=== PATIENT | male | born 1960 | race Caucasian/White ===

== ENCOUNTER 2019-12-01 09:54 | Emergency (ER) | payer BC ==
--- OUTSIDE RECORDS SUMMARY | 2019-12-01 10:45 | XMS REPORT | Continuity of Care Document ---
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 [facility] 011 ,[place] bilateral, corneal foreign body,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, [facility] (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, corneal foreign body,rt eye Other premature Active Problem 09/10/2019 CL beats Cardiovasc ular Essential Active Diagnosis 09/10/2019 CL hypertension, Cardio vascular benign Benign essential Active Problem 09/10/2019 CL hypertension Cardiov ascular Palpitations Active Diagnosis 09/10/2019 CL Cardiovasc ular Numbness Active Diagnosis 04/04/2018 CL Cardiovasc ular Other symptoms Active Diagnosis 09/10/2019 CL involving Cardiovasc ular cardiovascular system Other premature Active Problem 04/04/2018 CL beats Cardiovasc ular Palpitations Active Problem 04/04/2018 CL Cardiovasc ular Chest pain Active Diagnosis 04/04/2018 CL Cardiovasc ular Essential Active Problem 04/04/2018 CL hypertension, Cardio vascular benign Other symptoms Active Diagnosis 11/25/2014 CL involving Cardiovasc ular cardiovascular system Chest pain, Active Diagnosis 11/25/2014 CL unspecified Cardiova scular Hypertensive Resolved Problem 04/20/2015 [facility] disorder, systemic arterial (disorder) Hypothyroidism Resolved Problem 04/20/2015 [facility] (disorder) FEVER, Active [facility] [facility] UNSPECIFIED Medications Medication Details Route Status Patient Ordering Order Source Instructions Provider Date Clonidine HCl 1 tablet as Orally Active 0.1 MG Orally Leonor 08/25/ CL needed for twice a day 2018 Cardiovas cu systolic bp (bid) lar greater than 160 Hydrochlorothia 1 capsule in Orally Active 12.5 MG Leonor 08/18/ CL zide the morning Orally Once a 2019 Cardio vascu day lar Labetalol HCl 1 tablet Orally Active 150 Orally Leonor 08/05/ CL Every 12 2018 Cardiovascu hours. lar Labetalol HCl 1 tablet Orally Active 150 Orally Leonor 08/05/ CL Every 12 2018 Cardiovascu hours. lar Bystolic 1 tablet Orally Active 20 MG Orally Leonor /18/ CL Once a day 2016 Cardiovascu lar Bystolic 1 tablet Orally Active 20 MG Orally Leonor /18/ CL Once a day 2016 Cardiovascu lar Aspirin 1 tablet Orally Active 81 MG Orally Leonor 22/ CL Once a day 2016 Cardiovascu lar Aspirin 1 tablet Orally Active 81 MG Orally Leonor /22/ CL Once a day 2016 Cardiovascu lar Amlodipine 1 tablet Orally Active 10 MG Orally Leonor 09/18/ CL Besylate Once a day 2016 Cardiovascu lar Nitroglycerin 1 tablet Sublingual Active 0.4 MG Leonor /22/ CL Sublingual 2016 Cardiovascu once a day lar Amlodipine 1 tablet Orally Active 10 MG Orally Leonor 09/18/ CL Besylate Once a day 2016 Cardiovascu lar Nitroglycerin 1 tablet Sublingual Active 0.4 MG Leonor 03/22/ CL Sublingual 2017 Cardiovascu once a day lar Ciprofloxacin Special Active 250 MG Oral Instructions 2014 [facility] st Tablet [Cipro] : for UTI Ciprofloxacin 2 Notes: Do No Longer MG/ML not Active 2014 [facility] Injectable refrigerate Solution [Cipro] Solu-Medrol Notes: (Same No Longer as :Medrol) Active 2014 Take with food Solu-Medrol Notes: (Same Inactive as :Medrol) 2014 Take with food Solu-Medrol Notes: (Same Inactive as :Medrol) 2014 Take with food Amlodipine Notes: (Same No Longer as: Norvasc) Active 2014 pneumococcal Notes: (Same Inactive capsular as: 2014 polysaccharide Pneumovax type 1 vaccine 23) / pneumococcal Refrigerate capsular polysaccharide type 10A vaccine / pneumococcal capsular polysaccharide type 11A vaccine / pneumococcal capsular polysaccharide type 12F vaccine / pneumococcal capsular polysacchar methylPREDNISol 6 mg, PO, Active one SODium Daily, 0 2014 SUCCinate Refill(s) Amlodipine 10 mg, PO, Active Daily, 0 2014 Refill(s) Lactulose Notes: (Same No Longer as:Chronulac Active 2014 ) normal saline 1,000 mL, No Longer 0.9% IV 1,000 Rate: 125 Active 2014 [facility] ml/hr, Infuse over: 8 hr, Route: IV, Dosing Weight 93 kg, Total Volume: 1,000, Start date: 04/14/15 4:30:00, Duration: 30 day, Stop date: 05/14/15 4:29:00 Acetaminophen Notes: Do No Longer not exceed 4 Active 2014 gm/day. (Same as: Tylenol) Ondansetron Notes: (Same No Longer as: Zofran) Active 2014 MEDICATION WASTE Product Size: 4 mg Product Wasted: ___ mg Docusate Notes: (Same No Longer as: Colace) Active 2014 (Do Not Crush) ibuprofen 200 600 mg, Inactive mg oral tablet Route: PO, [facility], Dosing Weight 93.636, kg, Priority: STAT, Start date: 04/13/15 19:59:00, Stop date: 04/13/15 19:59:00 Albuterol 0.833 3 ml, Route: Inactive MG/ML / INHALATION, 2014 Ipratropium Drug Form: [place] 0.167 SOLN, Dosing MG/ML Inhalant Weight Solution 93.636, kg, [DuoNeb] ONCE, Start date: 04/13/15 19:58:00, Stop date: 04/13/15 19:58:00 Sodium Chloride 1,000 mL, Inactive 0.154 MEQ/ML 1,000 ml/hr, [facility] Injectable Infuse Over: Solution 1 hr, Route: IV, ONCE, Priority: STAT, Dosing Weight 93.636 kg, Start date: 04/13/15 19:58:00, Duration: 1 doses or times, Stop date: 04/13/15 19:58:00 Amlodipine 1 tablet Orally Active 10 MG Orally Leonor 03/29/ CL Besylate Once a day 2013 Cardiovascu lar [place] 5/325 1 tab, PO No Longer Chey Memoria l oral tablet Route: PO, [facility] 2010 [facility] Drug Form: TAB, ONCE, PRN Pain, Start date: 03/11/11 12:56:00 cefazolin 2 gm, Route: IVPB No Longer Chey Colby rial IVPB, ONCE, Active 2010 [facility] Start date: 03/11/11 8:10:00, Duration: 1 doses or times, Stop date: 03/11/11 8:10:00 LR IV 1,000 mL 1,000 mL, IV No Longer Frank Me morial Rate: [address] [place] [address] ml/hr, Infuse over: 25 hr, Route: IV, Total Volume: 1,000, Start date: 03/11/11 7:05:00, Duration: 30 day, Stop date: 04/10/11 7:04:00 Hydrochlorothia 1 capsule in Orally Active 12.5 MG Leonor CL zide the morning Orally Once a Cardio vascu day lar Clonidine HCl 1 tablet Orally Active 0.1 MG Orally Leonor CL Once a day as Cardiovasc u needed lar Amlodipine TAKE 1 NA Active 10 Leonor CL Besylate TABLET BY Cardiovascu MOUTH EVERY lar DAY Bystolic 1 tablet Orally Active 20 MG Orally Leonor CL Once a day Cardiovascu lar Clonidine HCl 1 tablet Orally Active 0.1 MG Orally Leonor CL Once a day as Cardiovasc u needed lar Methylprednisol 1 tab Oral Active 2.5 Oral qd Leonor CL one Cardiovascu lar Methylprednisol 1 tab Oral Active 2.5 Oral qd Leonor CL one Cardiovascu lar PrednisoLONE 1 tablet Orally Active 5 MG Orally Leonor CL Once a day Cardiovascu lar Quinapril HCl 1 tablet Orally Active 40 MG Orally Leonor CL Once a day Cardiovascu lar Allergies, Adverse Reactions, Alerts Substance Category Reaction Severity Reaction Status Date Comments S ource type Reported N.K.D.A. Adverse Info Not Adverse CL Reaction Available Reaction 9 Card iovascul ar NKFA Assertion Drug Active BROOKS Hernandez thedarren allergy Immunizations Immunization Date Site Status Last Comments Source Given Updated pneumococcal Left completed Toby BROOKS [place] [facility] 23-valent 5 Deltoid vaccine Results Order Name Results Value Reference Date Interpretation Comments Mary rce Range CHEM PANEL eGFR 86 04/17 Result Comment: The [facility] eGFR is calculated using the CKD-EPI formula. In most young, healthy individuals the eGFR will be >90 mL/min/1.73m2 . The eGFR declines with age. An eGFR of 60-89 may be normal in some populations, particularly the elderly, for whom the CKD-EPI formula has not been extensively validated. Use of the eGFR is not recommended in the following populations:< br/>
Candice viduals with unstable creatinine concentration s, including patients and those with serious co-morbid conditions.<b r/>
Patie nts with extremes in muscle mass or diet.

The data above are obtained from the National Kidney Disease Education Program (NKDEP) which additionally recommends that when the eGFR is used in patients with extremes of body mass index for purposes of drug dosing, the eGFR should be multiplied by the estimated BMI. CHEM PANEL Calcium Lvl 8.0 8.5 - 10.5 04/17 [facility] CHEM PANEL CO2 25 24 - 32 04/17 [facility] CHEM PANEL Sodium Lvl 136 135 - 145 04/17 [facility] CHEM PANEL Creatinine 1.0 0.5 - 1.4 04/17 [facility] CHEM PANEL Chloride Lvl 104 95 - 109 04/17 [facility] CHEM PANEL Potassium 3.7 3.5 - 5.1 04/17 [facility] CHEM PANEL BUN 11 7 - 22 04/17 [facility] CHEM PANEL Glucose Lvl 105 70 - 99 04/17 [facility] CHEM PANEL AGAP 10.7 10.0 - 04/17 20. [facility] HEMATOLOGY Platelet 330 133 - 450 04/17 [facility] HEMATOLOGY RDW 14.2 11.5 - 04/17 14.5 [facility] HEMATOLOGY Hct 43.5 42.0 - 04/17 MH 54.0 [facility] HEMATOLOGY MCV 94.3 80.0 - 04/17 MH 94.0 /2014 [facility] HEMATOLOGY MPV 7.7 7.4 - 10.4 04/17 /2014 [facility] HEMATOLOGY WBC 12.3 3.7 - 10.4 04/17 /2014 [facility] HEMATOLOGY MCHC 32.8 32.0 - 04/17 MH 36.0 /2014 [facility] HEMATOLOGY MCH 30.9 27.0 - 04/17 MH 31.0 /2014 [facility] HEMATOLOGY Hgb 14.3 14.0 - 04/17 MH 18.0 /2014 [facility] HEMATOLOGY RBC 4.61 4.70 - 04/17 MH 6. [facility] HEMATOLOGY Segs 68.0 45.0 - 04/17 MH 75.0 /2014 [facility] HEMATOLOGY Eosinophils 1.4 0.0 - 4.0 04/17 /2014 [facility] HEMATOLOGY Lymphocytes 20.2 20.0 - 04/17 MH 40.0 /2014 [facility] HEMATOLOGY Segs-Bands # 8.4 1.5 - 8.1 04/17 [facility] HEMATOLOGY Basophils 0.7 0.0 - 1.0 04/17 [facility] HEMATOLOGY Monocytes 9.7 2.0 - 12.0 04/17 [facility] HEMATOLOGY Eosinophils 0.2 0.0 - 0.5 04/17 # /2014 [facility] HEMATOLOGY Monocytes # 1.2 0.0 - 0.8 04/17 /2014 [facility] HEMATOLOGY Lymphocytes 2.5 1.0 - 5.5 04/17 # /2014 [facility] HEMATOLOGY Basophils # 0.1 0.0 - 0.2 04/17 [facility] URINE AND UA Color Ltyellow 04/16 STOOL /2014 [facility] URINE AND UA Bacteria Occasional None Seen 04/16 STOOL /HPF /HPF /2014 [facility] URINE AND UA Leuk Est Large Negative 04/16 STOOL *ABN* /2014 [facility] (04/16/15 1:02 PM) URINE AND UA WBC 106 0 - 5 04/16 STOOL /2014 [facility] URINE AND UA RBC 15 0 - 2 04/16 STOOL /2014 [facility] URINE AND UA Sq Epi Occasional Few /LPF 04/16 STOOL /LPF /2014 [facility] URINE AND UA Bili Negative Negative 04/16 STOOL *NA* /2014 [facility] (04/16/15 1:02 PM) URINE AND UA Nitrite Negative Negative 04/16 STOOL (04/16/15 1:02 PM) /2014 [facility] URINE AND UA Blood Small Negative 04/16 STOOL *ABN* [facility] (04/16/15 1:02 PM) URINE AND UA 2.0 0.1 - 1.0 04/16 STOOL Urobilinogen [facility] URINE AND UA Glucose Negative Negative 04/16 STOOL mg/dL mg/dL [facility] URINE AND UA Protein Negative Negative 04/16 STOOL mg/dL mg/dL [facility] URINE AND UA pH 7.0 5.0 - 8.0 04/16 STOOL [facility] URINE AND UA Ketones Negative Negative 04/16 STOOL mg/dL mg/dL [place] URINE AND UA Spec Grav 1.015 <=1.030 04/16 STOOL [facility] URINE AND UA Turbidity Slight Clear 04/16 STOOL *ABN* [facility] (04/16/15 1:02 PM) URINE AND UA Hyal Cast 1 0 - 2 04/16 STOOL [facility] ELECTROLYT Potassium 4.8 3.5 - 5.1 04/15 ES Lvl [facility] ELECTROLYT Sodium Lvl 136 135 - 145 04/15 ES [facility] ELECTROLYT Chloride Lvl 103 95 - 109 04/15 ES [facility] ELECTROLYT eGFR 86 04/15 Comment: The [facility] eGFR is calculated using the CKD-EPI formula. In most young, healthy individuals the eGFR will be >90 mL/min/1.73m2 . The eGFR declines with age. An eGFR of 60-89 may be normal in some populations, particularly the elderly, for whom the CKD-EPI formula has not been extensively validated. Use of the eGFR is not recommended in the following populations:< br/>
Candice viduals with unstable creatinine concentration s, including patients and those with serious co-morbid conditions.<b r/>
Patie nts with extremes in muscle mass or diet.

The data above are obtained from the National Kidney Disease Education Program (NKDEP) which additionally recommends that when the eGFR is used in patients with extremes of body mass index for purposes of drug dosing, the eGFR should be multiplied by the estimated BMI. ELECTROLYT Albumin Lvl 3.1 3.5 - 5.0 04/15 ES [facility] ELECTROLYT Globulin 3.2 2.0 - 4.0 04/15 ES [facility] ELECTROLYT Total 6.3 6.4 - 8.4 04/15 ES Protein /2014 [facility] ELECTROLYT Alk Phos 56 39 - 136 04/15 ES /2014 [facility] ELECTROLYT AST 12 0 - 37 04/15 ES /2014 [facility] ELECTROLYT A/G Ratio 1.0 0.7 - 1.6 04/15 ES /2014 [facility] ELECTROLYT ALT 33 0 - 65 04/15 ES /2014 [facility] ELECTROLYT Creatinine 1.0 0.5 - 1.4 04/15 ES Lvl /2014 [facility] ELECTROLYT BUN 10 7 - 22 04/15 ES /2014 [facility] ELECTROLYT Bili Total 1.1 0.2 - 1.3 04/15 ES /2014 [facility] ELECTROLYT Glucose Lvl 107 70 - 99 04/15 ES /2014 [facility] ELECTROLYT CO2 22 24 - 32 04/15 ES /2014 [facility] ELECTROLYT AGAP 15.8 10.0 - 04/15 ES 20.0 /2014 [facility] ELECTROLYT Calcium Lvl 8.0 8.5 - 10.5 04/15 ES /2014 [facility] ELECTROLYT B/C Ratio 10 6 - 25 04/15 ES /2014 [facility] HEMATOLOGY Segs-Bands # 17.5 1.5 - 8.1 04/15 MH /2014 [facility] HEMATOLOGY Monocytes # 0.6 0.0 - 0.8 04/15 MH /2014 [facility] HEMATOLOGY Lymphocytes 0.9 1.0 - 5.5 04/15 MH # /2015 [facility] HEMATOLOGY Segs 92.1 45.0 - 04/15 MH 75.0 /2015 [facility] HEMATOLOGY Basophils 0.1 0.0 - 1.0 04/15 /2014 [facility] HEMATOLOGY Monocytes 3.3 2.0 - 12.0 04/15 /2014 [facility] HEMATOLOGY Lymphocytes 4.5 20.0 - 04/15 MH 40.0 /2014 [facility] HEMATOLOGY MCH 30.9 27.0 - 04/15 MH 31.0 /2014 [facility] HEMATOLOGY MCV 95.2 80.0 - 04/15 94.0 /2014 [facility] HEMATOLOGY MCHC 32.5 32.0 - 04/15 MH 36.0 /2014 [facility] HEMATOLOGY RDW 14.0 11.5 - 04/15 MH 14.5 /2014 [facility] HEMATOLOGY MPV 8.2 7.4 - 10.4 04/15 [facility] HEMATOLOGY Platelet 270 133 - 450 04/15 [facility] HEMATOLOGY WBC 19.0 3.7 - 10.4 10 /2014 [facility] HEMATOLOGY RBC 4.84 4.70 - 04/15 MH 6.10 [facility] HEMATOLOGY Hgb 14.9 14.0 - 04/15 MH 18.0 /2014 [facility] HEMATOLOGY Hct 46.0 42.0 - 04/15 MH 54.0 /2014 [facility] CHEM PANEL LDH 158 98 - 192 04/14 [facility] HEMATOLOGY MCH 30.2 27.0 - 04/14 MH 31.0 /2014 [facility] HEMATOLOGY MCHC 31.5 32.0 - 04/14 MH 36.0 /2014 [facility] HEMATOLOGY RBC 4.59 4.70 - 04/14 MH 6.10 [facility] HEMATOLOGY RDW 14.3 11.5 - 04/14 MH 14.5 /2014 [facility] HEMATOLOGY MCV 96.0 80.0 - 04/14 MH 94.0 /2014 [facility] HEMATOLOGY Hgb 13.9 14.0 - 04/14 MH 18.0 /2014 [facility] HEMATOLOGY Hct 44.1 42.0 - 04/14 MH 54.0 /2014 [facility] HEMATOLOGY MPV 8.5 7.4 - 10.4 04/14 [facility] HEMATOLOGY Platelet 252 133 - 450 04/14 [facility] HEMATOLOGY WBC 23.0 3.7 - 10.4 04/14 [facility] HEMATOLOGY Eosinophils 0.1 0.0 - 4.0 04/14 [facility] HEMATOLOGY Basophils 0.4 0.0 - 1.0 04/14 [facility] HEMATOLOGY Monocytes 10.2 2.0 - 12.0 04/14 [facility] HEMATOLOGY Lymphocytes 7.1 20.0 - 04/14 MH 40.0 /2014 [facility] HEMATOLOGY Basophils # 0.1 0.0 - 0.2 04/14 [facility] HEMATOLOGY Segs-Bands # 18.9 1.5 - 8.1 04/14 [facility] HEMATOLOGY Monocytes # 2.4 0.0 - 0.8 04/14 [facility] HEMATOLOGY Lymphocytes 1.6 1.0 - 5.5 04/14 MH # /2014 [facility] HEMATOLOGY Segs 82.2 45.0 - 04/14 MH 75.0 /2015 [facility] THYROID TSH 0.159 0.360 - 04/14 PANEL 3.740 /2014 [facility] THYROID T4 Free 0.88 0.76 - 04/14 PANEL 1.46 /2014 [facility] CHEM PANEL Procalcitoni 0.05 0.00 - 04/14 n Lvl 0.10 [facility] CHEM PANEL Lactic Acid 0.8 0.5 - 2.2 04/14 Lvl /2014 [facility] VIRAL - Influ A Negative Negative 04/14 SEROLOG[facility] (04/13/15 8:27 PM) [facility] VIRAL - Influ B Negative Negative 04/14 SEROLOG[facility] (04/13/15 8:27 PM) /2014 [facility] CARDIAC proBNP 65 0 - 125 04/14 ENZYMES [facility] CARDIAC CK MB Index <0.5 0.0 - 2.5 04/14 ENZYMES [facility] CARDIAC Troponin-I <0.02 0.00 - 04/14 ENZYMES 0.40 /2014 [facility] CARDIAC CK MB <0.5 0.5 - 3.6 04/14 ENZYMES [facility] CARDIAC Total CK 111 12 - 191 04/14 ENZYMES [facility] CHEM PANEL eGFR 66 04/14 Comment: The [facility] eGFR is calculated using the CKD-EPI formula. In most young, healthy individuals the eGFR will be >90 mL/min/1.73m2 . The eGFR declines with age. An eGFR of 60-89 may be normal in some populations, particularly the elderly, for whom the CKD-EPI formula has not been extensively validated. Use of the eGFR is not recommended in the following populations:< br/>
Candice viduals with unstable creatinine concentration s, including patients and those with serious co-morbid conditions.<b r/>
Patie nts with extremes in muscle mass or diet.

The data above are obtained from the National Kidney Disease Education Program (NKDEP) which additionally recommends that when the eGFR is used in patients with extremes of body mass index for purposes of drug dosing, the eGFR should be multiplied by the estimated BMI. CHEM PANEL Bili Total 0.7 0.2 - 1.3 04/14 [facility] CHEM PANEL Total 7.0 6.4 - 8.4 04/14 Protein [facility] CHEM PANEL CO2 28 24 - 32 04/14 [facility] CHEM PANEL Calcium Lvl 8.4 8.5 - 10.5 04/14 [facility] CHEM PANEL Chloride Lvl 104 95 - 109 04/14 [facility] CHEM PANEL Globulin 3.2 2.0 - 4.0 04/14 [facility] CHEM PANEL B/C Ratio 13 6 - 25 04/14 [facility] CHEM PANEL AST 19 0 - 37 04/14 [facility] CHEM PANEL AGAP 9.0 10.0 - 04/14 MH 20.0 /2015 [facility] CHEM PANEL A/G Ratio 1.2 0.7 - 1.6 04/14 [facility] CHEM PANEL ALT 40 0 - 65 04/14 [facility] CHEM PANEL Sodium Lvl 137 135 - 145 04/14 [facility] CHEM PANEL Potassium 4.0 3.5 - 5.1 04/14 Lvl [facility] CHEM PANEL Glucose Lvl 95 70 - 99 04/14 [facility] CHEM PANEL Creatinine 1.2 0.5 - 1.4 04/14l [facility] CHEM PANEL Alk Phos 49 39 - 136 04/14 [facility] CHEM PANEL BUN 16 7 - 22 04/14 [facility] CHEM PANEL Albumin Lvl 3.8 3.5 - 5.0 04/14 [facility] HEMATOLOGY Basophils # 0.1 0.0 - 0.2 04/14 [facility] HEMATOLOGY Eosinophils 0.2 0.0 - 4.0 04/14 [facility] URINE AND UA Bacteria Occasional None Seen 04/14 STOOL /HPF /HPF /2014 [facility] URINE AND UA RBC None Seen 0 - 2 04/14 STOOL (04/13/15 8:19 PM) [facility] URINE AND UA WBC 6-10 /HPF None Seen 04/14 STOOL /HPF /2014 [facility] URINE AND UA Sq Epi Occasional Few /LPF 04/14 STOOL /LPF /2014 [facility] URINE AND UA Leuk Est Negative Negative 04/14 STOOL (04/13/15 8:19 PM) /2014 [facility] URINE AND UA Glucose Negative Negative 04/14 STOOL mg/dL mg/dL /2014 [facility] URINE AND UA Ketones Trace Negative 04/14 STOOL mg/dL mg/dL /2014 [facility] URINE AND UA Bili Negative Negative 04/14 STOOL *NA* /2014 [facility] (04/13/15 8:19 PM) URINE AND UA Blood Negative Negative 04/14 STOOL (04/13/15 8:19 PM) /2014 [facility] URINE AND UA 1.0 0.1 - 1.0 04/14 STOOL Urobilinogen /2014 [facility] URINE AND UA Nitrite Negative Negative 04/14 STOOL (04/13/15 8:19 PM) [facility] URINE AND UA Turbidity Slight Cloudy Clear 04/14 STOOL (04/13/15 8:19 PM) [facility] URINE AND UA Spec Grav 1.010 <=1.030 04/14 STOOL [facility] URINE AND UA pH 8.5 5.0 - 8.0 04/14 STOOL [facility] URINE AND UA Protein Negative Negative 04/14 STOOL mg/dL mg/dL [facility] URINE AND UA Color Yellow Yellow 04/14 STOOL *NA* /2014 [facility] (04/13/15 8:19 PM) Pathology Reports No Data Provided for This Section Diagnostic Reports Report Value Date Source Biopsy with ultrasound FNA RIGHT NECK MASS: 04/17/2015 [facility] HISTORY: Large right neck ma ss with substernal mediastinal mass, most likely thyroid origin. The patient had several prior biopsies of this in the past at other facilities. Repeat biopsy was requested prior to potential surgical removal. PROCEDURE: Using sterile melvina hnique, local anesthetic and ultrasound guidance, 5 passes into the mass at the thoracic inlet were done using a 25-gauge hypodermic needles. The specimens obtained were plac ed onto slides and spray fix ed. Washings were also placed into cytology fixative. The patient tolerated the pr ocedure well without immediate complications, and was transferred back to his hospital room in stable condition. SL:13 Neck soft tissue w CT NECK WITH CONTRAST: 04/14/[address] TECHNIQUE: Helical images fr om the base of the skull through the sternal notch were done with IV contrast. FINDINGS: The large superior mediastinal mass seen on the recent chest CT is contiguous with another large mass arising from the right lobe of the thyroid, which is also markedly enlarged. The mediastin al mass shows about the same heterogeneous characteristics as the thyroid mass with some small amorphous calcifications noted. The left lobe of the thyroid is unremarkable other than a small punctate calcification. There is no significant lymph node enlargement in the neck or supraclavicular regions. No other mass is demonstrated. The airway and vocal cords a re within normal limits. There is mild cervical spondylosis without evidence of spinal stenosis. The visible sinuses are clear. There are no significant vascular abnormalities. IMPRESSION: Large mass arising from the right lobe of the thyroid with a contiguous superior mediastinal mass, also likely thyroid in origin. SL:[address] CLINICAL HISTORY: Chest pain. 04/13/2015 [facility] Chest CT with IV contrast. COMPARISON: Chest radiograph performed earlier t he same day. Very large right paratrachea l cervical and anterior mediastinal mass is present. There is considerable mass effect on the trachea, which is displaced toward the left and narrowed to 8 mm in the transver se dimension just below the thoracic inlet. The innominate and left common carotid arteries are displaced, draped around the mass. As well, the left innominate vein is inferiorly displaced by the lesion . Heterogeneous enhancement within the mass is noted although its composite density remains approximately 100 Hounsfield units. Scattered calcifications within the mass. Note that the superior mikaela n of this mass in the neck is not completely included by this chest CT. There is no other mediastina l or hilar adenopathy. No axillary adenopathy. The lungs are clear. No pleural or pericardial effusion. No aortic aneurysm or dissection. Limited visualized upper abdomen dem onstrates no significant abn ormality. Specifically no adenopathy or splenomegaly. 5 mm low-density lesion with in the central aspect of the liver and 3 mm low- density lesion in the right lobe of the liver are too small to characterize, however possibly hepatic cysts. No thoracic bone lesion appreciated. Dorsal spine degenerative ch anges. IMPRESSION: A very large pricilla sivan right paratracheal cervical and superior mediastinal is present. Significant mass effect upon the trachea. Displacement of the great vessels and innominate vein. The upper lobular component appears likely glenis guous with the thyroid gland. The superior extent of the m ass is not completely defined within the neck by this study. Thyroid etiology is primary consideration. SL:[address] CLINICAL HISTORY: Generalized weakness. [facility] Brain CT without contrast. Left frontal white matter in farct of uncertain age. Subtle low-density changes in the left posterior merritt radiata white matter as well. There is no associated mass effect or hemorrhage. No other corti franck infarcts are appreciated . No pathologic extra-axial fluid. No skull fracture or lesion appreciated. Metallic hardware within both orbits obscures detail. IMPRESSION: Left merritt radi gaby and frontal white matter lesions of uncertain age. No hemorrhage or other acute finding. SL:12 Abdomen acute series w PROCEDURE: Abdomen 3 views 04/13/2015 [facility] chest 1 view DX REASON FOR EXAM: See Clinic Indication CLINICAL INFORMATION Abdominal pain, acute COMPARISON: None. Mediastinal prominence, melyssa elation with a chest ct with IV contrast is recommended to evaluate underlying etiology. Right paratracheal mass is suspected with tracheal compression and deviation. No infi ltrates, effusions or pneumo thorax. Normal heart and pulmonary vasculature. No free air. Nonspecific bowel gas pattern. Constipation. Bilateral femoral acetabular joint osteoarthritic change. SL: 13 Consultation Notes No Data Provided for This Section Discharge Summaries No Data Provided for This Section History and Physicals No Data Provided for This Section Vital Signs Vital Sign Value Date Comments Source Weight 204 04/28/2019 [facility] Heart Rate 75 04/28/2019 [facility] Diastolic (mm Hg) 86 04/28/2019 [facility] Systolic (mm Hg) 126 04/28/2019 [facility] Cardi[facility] scular Weight 215 10/27/2018 [facility] Heart Rate 80 10/27/2018 [facility] Diastolic (mm Hg) 80 10/27/2018 [facility] Systolic (mm Hg) 138 10/27/2018 [facility] Weight 215.4 08/25/2018 [facility] Heart Rate 80 08/25/2018 [facility] Diastolic (mm Hg) 88 08/25/2018 [facility] Systolic (mm Hg) 132 08/25/2018 [facility] Weight 209.8 04/09/2018 [facility] Heart Rate 64 04/09/2018 [facility] Diastolic (mm Hg) 80 04/09/2018 [facility] Systolic (mm Hg) 142 04/09/2018 [facility] Weight 217 10/02/2017 [facility] Heart Rate 76 10/02/2017 [facility] Diastolic (mm Hg) 86 10/02/2017 [facility] Systolic (mm Hg) 126 10/02/2017 [facility] Weight 209 06/03/2017 [facility] Heart Rate 76 06/03/2017 [facility] Diastolic (mm Hg) 80 06/03/2017 [facility] Systolic (mm Hg) 144 06/03/2017 [facility] Weight 214 04/16/2017 [facility] Heart Rate 74 04/16/2017 [facility] Diastolic (mm Hg) 80 04/16/2017 [facility] Systolic (mm Hg) 164 04/16/2017 [facility] Weight 212 01/15/2017 [facility] Heart Rate 74 01/15/2017 [facility] Diastolic (mm Hg) 88 01/15/2017 [facility] Systolic (mm Hg) 150 01/15/2017 [facility] Weight 206 10/01/2016 [facility] Heart Rate 60 10/01/2016 [facility] Diastolic (mm Hg) 78 10/01/2016 [facility] Systolic (mm Hg) 128 10/01/2016 [facility] Weight 204 09/18/2016 [facility] Heart Rate 77 09/18/2016 [facility] Diastolic (mm Hg) 80 09/18/2016 [facility] Systolic (mm Hg) 166 09/18/2016 [facility] Weight 206 07/29/2016 [facility] Heart Rate 77 07/29/2016 [facility] Diastolic (mm Hg) 82 07/29/2016 [facility] Systolic (mm Hg) 150 07/29/2016 [facility] Weight 204 01/23/2016 [facility] Heart Rate 75 01/23/2016 [facility] Diastolic (mm Hg) 80 01/23/2016 [facility] Systolic (mm Hg) 145 01/23/2016 [facility] Systolic (mm Hg) 135 04/17/2015 [facility] Diastolic (mm Hg) 82 04/17/[address] Temperature Oral (F) 97.8 F 04/17/2015 [facility] Respitory Rate 20 04/17/2015 [facility] Rate 66 04/17/2015 [facility] Respitory Rate 18 04/17/2015 [facility] Systolic (mm Hg) 147 04/17/2015 [facility] Diastolic (mm Hg) 83 04/17/[address] Temperature Oral (F) 98.2 F 04/17/2015 [facility] Heart Rate 65 04/17/2015 [facility] Temperature Oral (F) 97.7 F 04/17/2015 [facility] Respitory Rate 18 04/17/2015 [facility] Systolic (mm Hg) 117 04/17/2015 [facility] Diastolic (mm Hg) 67 04/17/[address] Heart Rate 59 04/17/2015 [facility] Weight 93 04/14/2015 [facility] Height 182.88 cm 04/14/2015 [facility] BMI Calculated 27.81 04/14/2015 [facility] Weight 93.636 04/14/2015 [facility] Weight 213 11/24/2014 [facility] Heart Rate 69 11/24/2014 [facility] Diastolic (mm Hg) 80 11/24/2014 [facility] Systolic (mm Hg) 124 11/24/2014 [facility] Diastolic (mm Hg) 83.0 03/11/2011 [facility] Systolic (mm Hg) 133.0 03/11/2011 [facility] Respitory Rate 16.0 03/11/[address] [facility] Respitory Rate 15.0 03/11/[address] [facility] Systolic (mm Hg) 135.0 03/11/2011 [facility] Diastolic (mm Hg) 82.0 03/11/2011 [facility] Respitory Rate 15.0 03/11/[address] [facility] Diastolic (mm Hg) 80.0 03/11/2011 [facility] Systolic (mm Hg) 139.0 03/11/2011 [facility] Temperature Oral (F) 97.3 F 03/11/2011 [facility] Height 180.34 cm 03/08/[address] [facility] Weight 95.909 03/08/[address] [facility] Encounters Location Location Encounter Encounter Reason Attending ADM AK Stat us Source Details Type Number For Provider Date Date Visit [facility] [id number] WINIFRED FINK 03/11 03/[address]char [address] [facility] /2010 d [facility] [place] 3 MONTH [id number] 03/29 03/29 [facility] Radha F/U [id number]- /2013 [facility] [place] [id number] scu lar [place] 3 MONTH [id number] 03/29 03/29 [facility] Mohamed F/U [id number]- /2013 Car n[facility] [place] [id number] scu lar [place] 3 MONTH [id number] 03/29 03/29 [facility] Mohamed F/U [id number]- /2013 [facility] [place] [id number] scu lar [place] 4 MONTH [id number] 07/28 07/28 [facility] Mohamed F/U [id number]- /2014 [facility] [place] [id number] scu lar [place] 4 MONTH [id number] 07/28 07/28 [facility] Mohamed F/U [id number]- /2014 [facility] [place] [id number] scu lar [place] 4 MONTH [id number] 07/28 07/28 [facility] [place] [id number]- /2014 [facility] [place] [id number] scu lar [place] REFILL [id number] 09/01 09/01 [facility] [id number]- /2014 [facility] [place] [id number] scu lar [place] REFILL [id number] 09/01 09/01 [facility] [id number]- /2014 [facility] [place] [id number] scu lar [place] REFILL [id number] 09/01 09/01 [facility] [id number]- /2014 [facility] [place] [id number] scu lar [place] echo [id number] 11/17 11/17 [facility] [id number]- /2014 [facility] [place] [id number] scu lar [place] echo [id number] 11/17 11/17 [facility] [id number]- /2014 [facility] [place] [id number] scu lar [place] echo [id number] 11/17 11/17 [facility] Mohamed [id number]- /2014 [facility] [place] [id number] scu lar [place] F/U ECHO [id number] 11/24 11/24 C L Mohamed [id number]- /2014 [facility] [place] [id number] scu lar [place] F/U ECHO [id number] 11/24 11/24 C L Mohamed [id number]- /2014 [facility] [place] [id number] scu lar [place] F/U ECHO [id number] 11/24 11/24 C L Mohamed [id number]- /2014 [facility] [place] [id number] scu lar [place] Refills [id number] 12/02 12/02 [facility] Mohamed [id number]- /2014 [facility] [place] [id number] scu lar [place] Refills [id number] 12/02 12/02 [facility] Mohamed [id number]- /2014 [facility] [place] [id number] scu lar [facility] [id number] Zackery 04/14 04/17 [facility] [place] /2014 [facility] [place] 6 MONTH [id number] 01/22 01/22 [facility] Mohamed F/U [id number]- /2015 [facility] [place] [id number] tnu [facility] 6 MONTH [id number] 01/22 01/22 [facility] Mohamed F/U [id number]- /2015 [facility] [place] [id number] tnu [facility] 6 MO [id number] 07/29 07/29 [facility] [id number]- /2016 [facility] [place] [id number] scu lar Procedures Procedure Code Date Perfomer Comments Source Appendectomy [id number] [facility] Tonsillectomy [id number] Kristan t Assessment and Plan Assessment and Plan Date Source Extracted from:Title: Clinical Document 04/17/2015 Roby Author: Zackery Ponce DO Date: 04/16/15 Progress Daily [facility] SUBJECTIVE Pt is feeling better with imoprovement i n his strength, but c/o urinary frequency and dysuria. denies fever or chills OBJECTIVE Vital Signs (last 24 hrs) Last Charted Temp Oral 97.5 DegF (APR 16 08:00) Heart Rate Peripheral 78 bpm (APR 16 08:00) Resp Rate 18 BRMIN (APR 16 08:00) SBP 127 mmHg (APR 16 08:00) DBP 72 mmHg (APR 16 08:00) Labs (Last four charted values) WBC H 19.0 (MAR 30 7) H 23.0 (APR 14) H 18.3 (MAR 15) Hgb 14.9 (MAR 17) L 13.9 (MAR 16) 15.0 (MAR 15) Hct 46.0 (MAR 17) 44.1 (MAR 16) 45.8 (MAR 15) Plt 270 (MAR 17) 252 (MAR 16) 269 (MAR 15) Na 136 (MAR 17) 137 (MAR 15) K 4.8 (MAR 17) 4.0 (MAR 15) CO2 L 22 (MAR 17) 28 (MAR 15) Cl 103 (APR 15) 104 (MAR 15) Cr 1.0 (APR 15) 1.2 (MAR 15) BUN 10 (MAR 17) 16 (MAR 15) Glucose Random H 107 (MAR 17) 95 (MAR 15) Ca L 8.0 (MAR 17) L 8.4 (MAR 1 5) Troponin <0.02 (APR 13) CK MB <0.5 (APR 13) Total CK 111 (APR 13) Input/Output Record In Out Bal 04/16 24hr Tot 0 0 0 04/15 24hr Tot 3800 0 3800 ASSESSMENT and EXAM Gen. Pt is AOX4 in no acute distress HEET: Normocephalic, nontraumatic. NECK: Supple, with palpable mass LUNGS: Clear on auscultation B/l with no wheezing or crackl es HEART: S1, S2.RRR with no murmurs ABDOMEN: Soft, NT/ND with good BS CENTRAL NERVOUS SYSTEM: Patient moving all extremities liss sly well. LOWER EXTREMITIES: No C/C/E PLAN and TREATMENT Pt with a complicated thyroid and endodr inology Hx presented with generalize weakness and noted with a large thyroid mass -Appreciated Pulm consult -Will d/c IVF -repeat UA and cx -will start on Cipro -Plan for IR neck biopsy tomorrow -Will consider CT surgery consult -C/w steroids DIAGNOSES and PROBLEMS Hypothyroidism Thyroid mass mediastinal mass Generalize fatigue HTN Moebius syndrome Scheduled Meds (3):amLODIPine, ciproflox acin (Cipro I.V. 400 mg/200 mL intravenous solution), methylPREDNISolone (Solu-MEDROL) Unscheduled Meds: None PRN Meds (4):acetaminophen, docusate, lactulose, ondansetron One Time Meds: None Continuous Infusions: None Extracted from:Title: Clinical Document Author: Amish Dawn MD Date: 04/14/15 History and Physical Attending: Zackery Ponce DO Service: Internal Medicine Code status: None Specified=FULL CODE Reason for Admission: FEBRILL ILLNESS, WEAKNESS Working DRG: None Documented Isolation: None Documented Consulting Physicians: (none on file) CC: I haven't been feeling well HPI: This is a 55 yo w/ below PMHx who p /w fatigue and generalized weakness for the past couple days. Has had subjective fevers/chills and sweats. No weight loss or weight gain. Last BM was 5 days ago a nd does feel constipated. Denies lighthe adedness/dizziness, vertigo, SOB, CP, abd pain, N/V, numbness/tingling, focal weakness, blurry vision, urinary changes, cough. No sick contacts. PMHx: Moebius syndrome HTN Hypothyroidism PSHx: appendectomy tonsillectomy eye surgery FHx: reviewed and noncontributory SHx: Denies tobacco, EtOH, illicit drugs Meds: Medication List Active Medications Ordered acetaminophen: 650 mg, 2 tab, PO, Q4H, PRN: Pain 1-3/Temp > 100.4 F. docusate: 100 mg, 1 cap, PO, BID, PRN: Constipati on. ondansetron: 4 mg, 2 mL, IVP, Q6H, PRN: Nausea an d Vomiting. Medications Inactivated in the Last 72 Hours albuterol-ipratropium: 3 ml, INHALATION, ONCE. albuterol-ipratropium: 3 mL, PYXIS, ONCE. ibuprofen: 600 mg, PO, ONCE. ibuprofen: 600 mg, 3 tab, PYXIS, ONCE. iohexol: 100 mL, PYXIS, ONCE. Sodium Chloride 0.9% IV: 1,000 mL, 1,000 ml/hr, IV, O NCE. Sodium Chloride 0.9% IV: 1,000 mL, PYXIS, ONCE. Allergies: NKFA, NKDA ROS: See HPI. All other systems reviewed by myself are negative u nless noted above. Physical Exam: Vitals Tmp(F) Pulse BP RR SpO2 FIO2 04/14 02:36 ---- 104 141/95 26 98 --- 04/14 01:36 ---- 85 117/59 16 93 --- 04/14 01:35 99.3 88 117/59 16 94 --- 04/14 00:42 ---- 88 118/68 28 94 --- 04/13 23:20 ---- 89 129/60 22 95 --- 24 Hr Tmax: 99.9F (37.72c) at 04/13 21:5 3 Vital Signs are the last 5 in the past 48 hours. General: NAD, nontoxic appearing HEENT: NCAT, PERRL, MMM, no LAD Cardiovascular: RRR, S1S2 Respiratory: CTAB Abdomen: soft, +BS, NT/ND Extremities: no b/l LE edema Skin: no rashes Neurologic: comprehension and speech intact, CN III-XII liss sly intact Musculoskeletal: symmetric strength in all extremities Rectal/: deferred Labs: 24hr Labs 04/132 Lactic Acid Lvl 0.8 Procalcitonin Lvl 0.05 04/13 2027 Influ A Negative Influ B Negative 04/13 2019 Sodium Lvl 137 Potassium Lvl 4.0 Chloride Lvl 104 CO2 28 AGAP 9.0 L Glucose Lvl 95 Creatinine Lvl 1.2 BUN 16 B/C Ratio 13 Total Protein 7.0 Albumin Lvl 3.8 Globulin 3.2 A/G Ratio 1.2 Calcium Lvl 8.4 L ALT 40 AST 19 Alk Phos 49 Bili Total 0.7 eGFR 66 Total CK 111 Troponin-I <0.02 CK MB <0.5 CK MB Index <0.5 proBNP 65 WBC 18.3 H RBC 4.87 Hgb 15.0 Hct 45.8 MCV 94.2 H MCH 30.7 MCHC 32.6 RDW 14.4 Platelet 269 MPV 7.6 Segs 86.5 H Monocytes 7.3 Lymphocytes 5.5 L Eosinophils 0.2 Basophils 0.5 Segs-Bands # 15.9 H Lymphocytes # 1.0 Monocytes # 1.3 H Basophils # 0.1 UA Color Yellow UA Turbidity Slight Cloudy UA Spec Grav 1.010 UA pH 8.5 H UA Protein Negative UA Glucose Negative UA Ketones Trace UA Bili Negative UA Blood Negative UA Urobilinogen 1.0 UA Nitrite Negative UA Leuk Est Negative UA RBC None Seen UA WBC 6-10 UA Bacteria Occasional UA Sq Epi Occasional Micro: blood and urine cxs sent Imaging: CT chest: A very large bilobed right par atracheal cervical and superior mediastinal is present. Significant mass effect upon the trachea. Displacement of the great vessels and innominate vein. The upper lobular component appears likely contiguous with t he thyroid gland. The superior extent of the mass is not c ompletely defined within the neck by this study. Thyroid etiology is primary consideration. CT head: Left merritt radiata and frontal white matter lesions of uncertain age. No hemorrhage or other acute finding. KUB: Mediastinal prominence, correlation with a chest ct with IV contrast is recommended to evaluate underlying etiology. Right paratracheal mass is suspected with tracheal compression and deviation. No infiltrates, effusions or pneumothorax. Normal heart and pulmonary vasculature. No free air. Nonspecific bowel gas pattern. Constipation. Bilateral femoral acetabular joint osteoarthritic change. EKG: NSR, no major ST abnormalities Assessment and Plan: 55 yo p/w fatigue a nd generalized weakness, found to have large anterior mediastinal mass. Given the location, there is concern for thymoma and lymphoma. Leukocytosis w/ elevated se gs but no source of infection identified. His symptoms are n on-specific. # generalized weakness and fatigue: will likely need biopsy of mass, check LDH and TSH/free T4, monitor airway # constipation: iv fluids and lactulose # leukocytosis: recheck in AM, no record ed fevers or other evidence of infxn so didn't start abx, blood and urine cxs sent # HTN/hypothyroidism: c/w home regimen Prophylaxis: ambulation Diet: heart healthy Amish Umanzor Plan of Care No Data Provided for This Section Social History Social History Date Source Social History ElementQualifiersDate Reported 07/29/2016 [facility] Diet: no. Jul 29, 2016 Caffeine: yes. Do you drink caffeine? Yes Coffee in the morning 2 cups. Iced tea every day. Red bull about 3 times a week. Jul 29, 2016 Exercise: yes. Do you exercise? Yes Gym once a week. Jul 29, 2016 Smoking: . Are you a: Never smoker, Do you use chewing tobacco? No Jul 29, 2016 Alcohol: socially. Do you drink alcohol? Yes Red Wine. Socially. Jul 29, 2016 Social History TypeResponse 04/14/2015 [facility] Alcohol Current, Type Wine. Frequency: 1-2 times per month. Smoking Status Never smoker; Exposure to Tobacco Smoke None; Cigarette Smoking Last 365 Days No; Reg Smoking Cessation Counseling No Family History Value Date Source QualifierDescriptionCommentDate Reported 07/30/2016 [facility] Maternal Grand Mother Comment not available Jul 29, 2016 Paternal Grand Mother Comment not available Jul 29, 2016 Siblings Comment not available Jul 29, 2016 Maternal Grand Father Comment not available Jul 29, 2016 Children Comment not available Jul 29, 2016 Father alive Comment not available Jul 29, 2016 Paternal Grand Father Comment not available Jul 29, 2016 Mother alive Comment not available Jul 29, 2016 Other: Comment not available Jul 29, 2016 Advance Directives No Data Provided for This Section Functional Status No Data Provided for This Section
--- OUTSIDE RECORDS SUMMARY | 2019-12-01 10:46 | XMS REPORT ---
:1960 Author Organization eClinicalWorks Care Team Providers Name Role Phone Radha Galvez Provider Role Unavailable Allergies No Known Allergies Problems Problem Type Condition Code Onset Dates Condition Statu s Assessment Essential hypertension, benign I10 Active Assessment Other symptoms involving R09.89 Act jose eduardo cardiovascular system Problem Other premature beats I49.49 Active Problem Essential hypertension, benign I10 Active Problem Benign essential hypertension I10 Active Assessment Other premature beats I49.49 Active Assessment Palpitations R00.2 Active Problem Palpitations R00.2 Active Medications Medication Code Code Instructions Start End Status Dosage System Date Date Clonidine HCl [facility] 52747283302 0.1 MG Orally Aug 25, Active 1 tablet as twice a day 2018 needed for (bid) systolic bp greater than 160 Quinapril HCl [facility] 36687851830 40 MG Orally Active 1 tablet Once a day Aspirin [facility] 12534966405 81 MG Orally August Active 1 table t Once a day 2016 Labetalol HCl [facility] [address]-29 150 Orally Aug 05, Active 1 tablet Every 12 hours. 2018 Results No Known Results Summary Purpose eClinicalWorks Submission
--- OUTSIDE RECORDS SUMMARY | 2019-12-01 10:46 | XMS REPORT ---
:1960 Author Organization e[employer]Works Care Team Providers Name Role Phone Radha Galvez Provider Role Unavailable Allergies, Adverse Reactions, Alerts Substance Reaction Event Type N.K.D.A. Info Not Available Non Drug Allergy Problems Problem Type Condition Code Onset Dates [...] Start End Status Dosage System Date Date Aspirin [facility] 09611604001 81 MG Orally August Active 1 table t Once a day 2016 Clonidine HCl [facility] 02615302144 0.1 MG Orally Aug 25, Active 1 tablet as twice a day 2018 needed for (bid) systolic bp greater than 160 Labetalol HCl [facility] [address]-78 150 Orally Aug 05, Active 1 tablet Every 12 hours. 2018 Quinapril HCl [facility] 83369577736 40 MG Orally Active 1 tablet Once a day Vital Signs Date/Time: Apr 28, 2019 BMI 27.66 Index Weight 204 lbs Height 6ft in Cardiac Monitoring Heart Rate 75 /min Blood Pressure Diastolic 86 mm Hg Blood Pressure Systolic 126 mm Hg Results No Known Results Summary Purpose eClinicalWorks Submission
[2019-12-01 12:18] LABS: Urine Blood TRACE (NEG); Urine Glucose NEGATIVE (NEG); Urine Protein 2+ (NEG); Urine Specific Gravity >1.030 (1.005-1.030); Urine pH 5.5 (5.0-7.0)
--- NOTE | 2019-12-01 13:24 | RAD REPORT ---
EXAM DESCRIPTION: US - Scrotum Testicles - 12/01/2019 12:42 pm CLINICAL HISTORY: right scrotal swelling COMPARISON: No comparisons FINDINGS: Right testicle demonstrates an 11 millimeter predominantly hyperechoic oval-shaped mass. O n Doppler evaluation blood flow was present within the mass that is diminished compared to the surrou nding testicular tissue. Overall blood flow into the right testicle is increased. Adjacent to the right testicle there is a large 5.4 x 2.5 x 2.3 centimeter predominantly hypoechoic m acrolobulated mass. This is centrally hypoechoic with echogenic septations. Rim is echogenic. There i s heterogeneous mixed echogenic and cystic epididymal tissues adjacent to this mass. The left testicle contains a 16 millimeter oval mass that is predominantly hyperechoic. Positioning w ithin the testicle is similar to the finding on the right. Overall blood flow of the left testicle is diminished relative to the right but not absent. Adjacent to the left testicle is a 5 x 3 by 3 centi meter complex cystic mass. No thickened septation or mural nodule seen. There is echogenic debris wit hin the cystic mass. Left supra testicular dilated veins are seen. IMPRESSION: Bilateral predominately echogenic masses in each testicle relatively similar in size, po sition and imaging characteristics. Malignant masses tend to be hypoechoic and the presence of bilate ral relatively symmetric masses would be very uncommon as a malignant etiology. Findings may represent an atypical presentation of rete testis. Abscess or infectious process not lik nghia. Patient likely has large bilateral complex spermatoceles. Left varicocele is also likely present. The greater complex [place] of the right mass could indicate the possibility of a more aggressive extratest icular mass or less likely abscess.
--- NOTE | 2019-12-01 13:54 | ER ---
Nurse's Notes [facility] Name: Radhames Campbell Age: 59 yrs Sex: Male : 1960 Arrival Date: 12/01/2019 Time: 09:55 Bed 14 Private MD: Yash Grant A Diagnosis: Epididymitis Presentation: 11/30 10:20 Chief complaint: Patient states: Right testicular swelling x 1 day. Coronavirus screen: sv Proceed with normal triage. Patient denies a cough. Patient denies shortness of breath or difficulty breathing. Patient denies measured and/or subjective temperature greater than 100.4F prior to today's visit. Patient denies travel on a cruise ship or to a country the [facility] currently lists as an affected area. Patient denies contact with known and/or suspected case of COVID-19. Ebola Screen: No symptoms or risks identified at this time. Initial Sepsis Screen: Does the patient meet any 2 criteria? HR > 90 bpm. No. Patient's initial sepsis screen is negative. Does the patient have a suspected source of infection? No. Patient's initial sepsis screen is negative. Risk Assessment: Do you want to hurt yourself or someone else? Patient reports no desire to harm self or others. Onset of symptoms was November 30, 2019. 10:20 Method Of Arrival: Ambulatory sv 10:20 Acuity: JAN 3 sv Triage Assessment: 10:22 General: Appears in no apparent distress. uncomfortable, Behavior is calm, cooperative, sv appropriate for age. Pain: Complains of pain in pelvis. Historical: - Allergies: 10:21 No Known Allergies; sv - Immunization history:: Adult Immunizations unknown. - Social history:: Smoking status: Patient denies any tobacco usage or history of. Screenin:10 Abuse screen: Denies threats or abuse. Denies injuries from another. Nutritional bp screening: No deficits noted. Tuberculosis screening: No symptoms or risk factors identified. Fall Risk None identified. Assessment: 11:10 General: Behavior is cooperative, appropriate for age, anxious. Pain: Complains of pain bp in groin. Neuro: No deficits noted. Cardiovascular: No deficits noted. Respiratory: No deficits noted. GI: No signs and/or symptoms were reported involving the gastrointestinal system. : Reports R TESTICULAR PAIN. EENT: No deficits noted. Derm: No deficits noted. Musculoskeletal: No deficits noted. 11:56 Reassessment: PT TO U/S. bp 12:23 Reassessment: PT RETURNED FROM U/S. bp 14:14 Reassessment: PT D/C HOME AMBULATORY, DX WITH EPIDIDYMITIS. bp Vital Signs: 10:20 BP 152 / 88; Pulse 85; Resp 16; Temp 98.7; Pulse Ox 96% ; Weight 92.08 kg; Height 6 ft. sv 0 in. (182.88 cm); Pain 6/10; 12:24 BP 141 / 75; Pulse 73; Resp 17; Pulse Ox 100% ; bp 14:14 BP 137 / 89; Pulse 85; Resp 17; Temp 98.5; Pulse Ox 100% ; bp 10:20 Body Mass Index 27.53 (92.08 kg, 182.88 cm) sv ED Course: 09:55 Patient arrived in ED. as 09:56 Yash Grant MD is Private Physician. as 10:13 [facility] 10:14 Yonas Galaviz MD is Attending Physician. jmm 10:21 Triage completed. sv 10:21 Arm band placed on. sv 11:10 Patient has correct armband on for positive identification. Bed in low position. Call bp light in reach. Side rails up X2. 11:11 Rodolfo Chang, ELIUD is Primary Nurse. bp 12:42 US Scrotum Testicles In Process Unspecified. EDMS 13:53 Yash Grant MD is Referral Physician. jmm 14:14 No provider procedures requiring assistance completed. Patient did not have IV access bp during this emergency room visit. Administered Medications: No medications were administered Outcome: 13:53 Discharge ordered by . jmm 14:14 Discharged to home ambulatory. bp 14:14 Condition: stable 14:14 Discharge instructions given to patient, Instructed on discharge instructions, follow up and referral plans. medication usage, Demonstrated understanding of instructions, follow-up care, medications, Prescriptions given X 2. 14:16 Patient left the ED. bp Signatures: Dispatcher [employer] EDMS Chandrika Feliz RN RN Mike Vega PA PA jmm Martinez, Amelia as Rodolfo Chang, RN RN bp Corrections: (The following items were deleted from the chart) 10:21 10:20 BP 152 / 88; Pulse 96bpm; Resp 16bpm; Pulse Ox 96%; Temp 98.7F; 92.08 kg; Height sv 6 ft. 0 in.; BMI: 27.5; Pain 6/10; sv
--- NOTE | 2019-12-01 13:55 | EDPHYS ---
Physician Documentation [facility] Name: Radhames Campbell Age: 59 yrs Sex: Male : 1960 Arrival Date: 12/01/2019 Time: 09:55 Bed 14 Private MD: Yash Grant, A ED Physician Yonas Galaviz HPI: 11/30 11:22 This 59 yrs old Male presents to ER via Ambulatory with complaints of jmm Testicular Swelling. 11:22 The patient presents with swelling, that is moderate, of the right testicle. Onset: The jmm symptoms/episode began/occurred gradually, 1 day(s) ago. Modifying factors: The symptoms are alleviated by nothing, the symptoms are aggravated by nothing. Associated signs and symptoms: Pertinent positives: dysuria, Pertinent negatives: fever. This is a 59 year old male that presents to the ED with complaints of scrotal pain and swelling. Patient states having a similar episode when diagnosed with epididymitis. . Historical: - Allergies: 10:21 No Known Allergies; sv - Immunization history:: Adult Immunizations unknown. - Social history:: Smoking status: Patient denies any tobacco usage or history of. ROS: 11:22 Constitutional: Negative for fever, chills, and weight loss, Cardiovascular: Negative jmm for chest pain, palpitations, and edema, Respiratory: Negative for shortness of breath, cough, wheezing, and pleuritic chest pain. 11:22 : Positive for scrotal swelling. 11:22 All other systems are negative. Exam: 11:22 Constitutional: This is a well developed, well nourished patient who is awake, alert, jmm and in no acute distress. Head/Face: atraumatic. Eyes: EOMI, no conjunctival erythema appreciated ENT: Moist Mucus Membranes Neck: Trachea midline, Supple Chest/axilla: Normal chest wall appearance and motion. Cardiovascular: Regular rate and rhythm. No edema appreciated Respiratory: Normal respirations, no respiratory distress appreciated Abdomen/GI: Non distended, soft Back: Normal ROM Skin: General appearance color normal MS/ Extremity: Moves all extremities, no obvious deformities appreciated, no edema noted to the lower extremities Neuro: Awake and alert, normal gait Psych: Behavior is normal, Mood is normal, Patient is cooperative and pleasant 11:22 : Male external genitalia: swelling, scrotal, that is moderate. 11:22 Musculoskeletal/extremity: ROM: intact in all extremities. 11:22 Skin: Appearance: Color: normal in color. 11:22 Neuro: Orientation: is normal, Mentation: is normal, Memory: is normal. 11:22 Psych: Behavior/mood is pleasant, cooperative. Vital Signs: 10:20 BP 152 / 88; Pulse 85; Resp 16; Temp 98.7; Pulse Ox 96% ; Weight 92.08 kg; Height 6 ft. sv 0 in. (182.88 cm); Pain 6/10; 12:24 BP 141 / 75; Pulse 73; Resp 17; Pulse Ox 100% ; bp 14:14 BP 137 / 89; Pulse 85; Resp 17; Temp 98.5; Pulse Ox 100% ; bp 10:20 Body Mass Index 27.53 (92.08 kg, 182.88 cm) sv MDM: 11:22 Patient medically screened. sam 13:52 Data reviewed: vital signs, nurses notes. Counseling: I had a detailed discussion with benoit the patient and/or guardian regarding: the historical points, exam findings, and any diagnostic results supporting the discharge/admit diagnosis, lab results, radiology results, the need for outpatient follow up, to return to the emergency department if symptoms worsen or persist or if there are any questions or concerns that arise at home. ED course: US reveals increased flow. Most likely epididymitis. Advised to follow up with urology due to masses and is otherwise given strict return precautions. patient understood and agrees with the plan of care. . 11/30 11:24 Order name: Urine Culture [facility] 11/30 12:06 Order name: Urine Dipstick--Ancillary (enter results); Complete Time: 12:24 [facility] 11/30 11:24 Order name: Urine Dipstick-Ancillary (obtain specimen); Complete Time: 11:51 [facility] 11/30 11:24 Order name: US Scrotum Testicles; Complete Time: 13:32 [facility] Administered Medications: No medications were administered Disposition: 15:29 Co-signature as Attending Physician, Yonas Galaviz MD I agree with the assessment and kdr plan of care. Disposition: 12/01/19 13:53 Discharged to Home. Impression: Epididymitis. - Condition is Stable. - Discharge Instructions: Epididymitis. - Prescriptions for Cipro 500 mg Oral Tablet - take 1 tablet by ORAL route every 12 hours for 10 days; 20 tablet. Ultracet 37.5- 325 mg Oral Tablet - take 1 tablet by ORAL route every 6 hours - for up to 5 days; do not exceed 8 tablets per day.; 12 tablet. - Medication Reconciliation Form, Thank You Letter, Antibiotic Education, Prescription Opioid Use form. - Follow up: Yash Grant MD; When: 2 - 3 days; Reason: Recheck today's complaints, Continuance of care, Re-evaluation by your physician. Signatures: Dispatcher [employer] EDChandrika Dunlap, RN RN Yonas Palomino MD MD kdr Mickail, Joel, PA PA jmm Peltier, Brian, RN RN bp Corrections: (The following items were deleted from the chart) 14:16 13:53 12/01/2019 13:53 Discharged to Home. Impression: Epididymitis. Condition is bp Stable. Forms are Medication Reconciliation Form, Thank You Letter, Antibiotic Education, Prescription Opioid Use. Follow up: Yash Grant; When: 2 - 3 days; Reason: Recheck today's complaints, Continuance of care, Re-evaluation by your physician. benoit
[2019-12-01 14:24] VITALS: O2SAT 100
[2019-12-01 14:26] VITALS: BP 137/89; TEMP 98.5
== END 2019-12-01 14:16 | disposition home or self-care (01) ==
LOC: ER 09:54
DX: N45.1 Epididymitis (principal)
CPT/HCPCS: 76870; 81003; 87086; 87088; 99283

== ENCOUNTER → 2023-06-29 | Emergency (ER) | payer BC ==
[~2023-06-29] MED LIST: CEFTRIAXONE 1000 MG/VIAL ONE; MORPHINE 4 MG/ML SYR ONE; NA CHLORIDE 0.9% 1,000 ML ONE; ONDANSETRON 4 MG/2 ML VIAL ONE
[2023-06-29 12:45] LABS: Absolute Lymphocytes (CBC) 2.4 K/uL (0.7-4.9); Hematocrit 49.2 % (39.6-49.0); Lymphocytes % 29.4 % (15.3-44.8); MCV 94.6 fL (80-100); MPV 7.1 fL (7.6-11.3); Platelets 263 thou/uL (152-406)
[2023-06-29 12:55] LABS: Specific Gravity > 1.030 (1.005-1.030); Transitional Epithelial <5 /HPF (None Seen); Urine Bacteria <20 /HPF (<20); Urine Bilirubin NEGATIVE (Negative); Urine Blood Negative (Negative); Urine Clarity Extremely Turbid (Clear); Urine Color Yellow (Yellow); Urine Glucose NEGATIVE (Negative); Urine Mucus 1+ /HPF (None Seen); Urine Protein 1+ (Negative); Urine Urobilinogen 1+ (Normal); Urine pH 5.5 (5.0-7.0)
[2023-06-29 13:03] LABS: Albumin 3.4 g/dL (3.4-5.0); Bilirubin Total 0.7 mg/dL (0.2-1.0)
--- NOTE | 2023-06-29 13:03 | RAD REPORT ---
EXAM DESCRIPTION: CT - Stone Protocol - 06/29/2023 12:52 pm CLINICAL HISTORY: Flank pain. FLANK PAIN COMPARISON: <Comparisons> TECHNIQUE: Axial images were obtained without oral or IV contrast. Lack of contrast limits solid org an and vascular assessment. The [id number] spans the entirety of the system partially obscuring uppermost abdomen and lung bases. Coronal reformatted images were obtained and reviewed. All CT scans are performed using dose optimization technique as appropriate and may include automated exposure control or mA/KV adjustment according to patient size. FINDINGS: The lower lung shook are clear. Imaged portions of the liver and spleen show no suspicious findings on non-contrast imaging. The panc reas and adrenal glands are normal. No pathologic lymphadenopathy in the abdomen or pelvis. No urinary tract stones or obstructive uropathy. 26 mm exophytic cyst right kidney No bowel obstruction, free air, free fluid or abscess. Absent appendix.Moderate fat containing left i nguinal hernia. Prominent stool is present throughout the colon. Mild lumbar degenerative changes. IMPRESSION: No urinary tract stones or obstructive uropathy. Moderate fat containing left inguinal hernia. Moderate stool present throughout the colon.
--- NOTE | 2023-06-29 14:20 | EDPHYS ---
Physician Documentation [facility] Name: Radhames Campbell Age: 63 yrs Sex: Male : 1960 Arrival Date: 06/29/2023 Time: 11:55 Bed 20 Private MD: ED Physician Freddy Jones HPI: 06/29 12:23 This 63 yrs old Male presents to ER via Ambulatory with complaints of Low Back Pain. jh7 12:23 The patient presents with pain that is acute, with no known mechanism of injury. The jh7 symptoms are located in the left low back. 63-year-old male complains of left flank pain with no injury for the past 4 days. He denies any injury. He reports a history of hypertension and enlarged prostate. Notes mild urinary retention without dysuria. Denies any fever. Describes the pain as a spasm.. Historical: - Allergies: 12:23 No Known Allergies; hb - PMHx: 12:23 Hypertensive disorder; hb - PSHx: 12:23 Tonsillectomy; Appendectomy; Thyroidectomy; hb - Immunization history:: Adult Immunizations unknown. - Social history:: Smoking status: Patient denies any tobacco usage or history of. ROS: 12:23 Constitutional: Negative for fever, chills, and weight loss, Eyes: Negative for injury, jh7 pain, redness, and discharge, Neck: Negative for injury, pain, and swelling, Cardiovascular: Negative for chest pain, palpitations, and edema, Respiratory: Negative for shortness of breath, cough, wheezing, and pleuritic chest pain, Abdomen/GI: Negative for abdominal pain, nausea, vomiting, diarrhea, and constipation, MS/Extremity: Negative for injury and deformity, Skin: Negative for injury, rash, and discoloration, Neuro: Negative for headache, weakness, numbness, tingling, and seizure, 12:23 Back: Positive for flank pain, on the left, 12:23 : Positive for flank pain, 12:23 All other systems are negative, Exam: 12:23 Constitutional: This is a well developed, well nourished patient who is awake, alert, jh7 and in no acute distress. Head/Face: Normocephalic, atraumatic. Eyes: Pupils equal round and reactive to light, extra-ocular motions intact. Lids and lashes normal. Conjunctiva and sclera are non-icteric and not injected. Cornea within normal limits. Periorbital areas with no swelling, redness, or edema. Neck: Trachea midline, no thyromegaly or masses palpated, and no cervical lymphadenopathy. Supple, full range of motion without nuchal rigidity, or vertebral point tenderness. No Meningismus. Cardiovascular: Regular rate and rhythm with a normal S1 and S2. No gallops, murmurs, or rubs. Normal PMI, no JVD. No pulse deficits. Respiratory: Lungs have equal breath sounds bilaterally, clear to auscultation and percussion. No rales, rhonchi or wheezes noted. No increased work of breathing, no retractions or nasal flaring. Abdomen/GI: Soft, non-tender, with normal bowel sounds. No distension or tympany. No guarding or rebound. No evidence of tenderness throughout. Skin: Warm, dry with normal turgor. Normal color with no rashes, no lesions, and no evidence of cellulitis. MS/ Extremity: Pulses equal, no cyanosis. Neurovascular intact. Full, normal range of motion. Neuro: Awake and alert, GCS 15, oriented to person, place, time, and situation. Motor strength 5/5 in all extremities. Sensory grossly intact. Normal gait. 12:23 : CVA tenderness, on the left, urine is cloudy, Vital Signs: 12:20 BP 123 / 81; Pulse 18; Resp 16; Temp 97.2; Pulse Ox 100% ; Weight 91.17 kg; Height 6 hb ft. 0 in. ; Pain 8/10; 12:38 BP 134 / 79; Pulse 75; Resp 16 S; Pulse Ox 99% on R/A; Pain 4/10; kc6 13:38 BP 124 / 80; Pulse 67; Resp 19 S; Pulse Ox 99% on R/A; kc6 12:20 Body Mass Index 27.26 (91.17 kg, 182.88 cm) hb 12:20 Pain Scale: Adult hb 12:38 Pain Scale: Adult kc6 MDM: 12:01 Patient medically screened. [facility] 14:00 Differential diagnosis: arthritis, strain, sciatica, UTI, Renal stone, pyelonephritis, jh7 dehydration. Data reviewed: vital signs, nurses notes, lab test result(s), radiologic studies, CT scan. I considered the following discharge prescriptions or medication management in the emergency department Medications were administered in the Emergency Department. See MAR. Historians other than the Patient: Spouse/Significant Other: . Care significantly affected by the following chronic conditions: Hypertension. Counseling: I had a detailed discussion with the patient and/or guardian regarding the historical points, exam findings, and any diagnostic results supporting the discharge/admit diagnosis, to return to the emergency department if symptoms worsen or persist or if there are any questions or concerns that arise at home. Response to treatment: the patient's symptoms have markedly improved after treatment. ED course: Reviewed all labs and imaging with the patient. Suspected possible kidney stone that the patient had passed upon arrival versus UTI/dehydration. Will treat for infection and have the patient follow-up with his PCP. If he develops any new concerning symptoms, he may return to the ER for further eval. The patient and his understood the plan of care.. 06/29 12:24 Order name: CBC with Diff; Complete Time: 13:04 [facility] 06/29 12:24 Order name: CMP; Complete Time: 13:04 [facility] 06/29 12:24 Order name: Lipase; Complete Time: 13:04 [facility] 06/29 12:24 Order name: Urinalysis w/ reflexes; Complete Time: 13:04 [facility] 06/29 12:59 Order name: Urine Culture [facility] 06/29 12:24 Order name: CT Stone Protocol; Complete Time: 13:04 [facility] 06/29 12:24 Order name: IV Saline Lock; Complete Time: 12:34 [facility] 06/29 12:24 Order name: Labs collected and sent; Complete Time: 12:34 [facility] Administered Medications: 12:38 Drug: NS 0.9% IV 1000 ml IV at 1 bolus Per protocol; 1000 mL bolus Route: IV; Rate: 1 kc6 bolus; Site: right antecubital; 14:12 Follow up: Response: No adverse reaction; IV Status: Completed infusion; IV Intake: kc6 1000ml 12:38 Drug: Ondansetron IVP 4 mg IVP once; over 2 minutes Route: IVP; Site: right antecubital;kc6 13:43 Follow up: Response: No adverse reaction kc6 12:38 Drug: morphine IVP or IV 4 mg IVP once over 4 mins Route: IVP; Infused Over: 4 mins; kc6 Site: right antecubital; 13:42 Follow up: Response: No adverse reaction; Pain is decreased; RASS: Alert and Calm (0) 6 13:12 Drug: Rocephin IV 1 grams IV at 1 calculated rate once; Given slow IV push per pharmacy kc6 instructions Route: IV; Rate: 1 calculated rate; Site: right antecubital; 14:13 Follow up: Response: No adverse reaction; IV Status: Completed infusion; IV Intake: [id number] Disposition: 06/30 08:53 Co-signature as Attending Physician, Freddy Jones MD I reviewed the patient's care rn provided by the Advanced Practice Provider and agree with the diagnosis and treatment plan. Disposition Summary: 06/29/23 14:19 Discharge Ordered Notes: Location: Home [facility] Problem: new [facility] Symptoms: have improved [facility] Condition: Stable [facility] Diagnosis - Flank Pain [facility] - Dehydration [facility] Followup: [facility] - With: Private Physician - When: 2 - 3 days - Reason: Recheck today's complaints Discharge Instructions: - Discharge Summary Sheet [facility] - Dehydration, Adult [facility] - Flank Pain, Adult [facility] Forms: - Medication Reconciliation Form [facility] - Thank You Letter [facility] - Antibiotic Education [facility] - Prescription Opioid Use [facility] - Patient Portal Instructions [facility] - Leadership Thank You Letter [facility] Prescriptions: - Cipro 500 mg Oral Tablet - take 1 tablet ORAL route every 12 hours for 10 days; 20 tablet; Refills: 0, [facility] Product Selection Permitted - Tramadol 50 mg Oral tablet - take 1 tablet ORAL route every 8 hours As needed as needed; 20 tablet; Refills: [facility] 0, Product Selection Permitted Signatures: Dispatcher [employer] Freddy Felix MD MD rn Baxter, Heather RN ELIUD Imelda Mcelroy FNP [employer] [facility] Sophia Martinez RN RN kc6
--- NOTE | 2023-06-29 14:20 | ER ---
Nurse's Notes [facility] Name: Radhames Campbell Age: 63 yrs Sex: Male : 1960 Arrival Date: 06/29/2023 Time: 11:55 Bed 20 Private MD: Diagnosis: Flank Pain;Dehydration Presentation: 06/29 12:20 Chief complaint: Patient states: Pt c/o left flank pain x 3 days. Pt denies any urinary hb sxs. Coronavirus screen: Vaccine status: Patient reports being unvaccinated. Ebola Screen: Patient negative for fever greater than or equal to 101.5 degrees Fahrenheit, and additional compatible Ebola Virus Disease symptoms Patient denies exposure to infectious person. Patient denies travel to an Ebola-affected area in the 21 days before illness onset. No symptoms or risks identified at this time. Initial Sepsis Screen: Does the patient meet any 2 criteria? No. Patient's initial sepsis screen is negative. Does the patient have a suspected source of infection? No. Patient's initial sepsis screen is negative. Risk Assessment: Do you want to hurt yourself or someone else? Patient reports no desire to harm self or others. Onset of symptoms was June 27, 2023. 12:20 Method Of Arrival: Ambulatory hb 12:20 Acuity: JAN 3 hb Historical: - Allergies: 12:23 No Known Allergies; hb - PMHx: 12:23 Hypertensive disorder; hb - PSHx: 12:23 Tonsillectomy; Appendectomy; Thyroidectomy; hb - Immunization history:: Adult Immunizations unknown. - Social history:: Smoking status: Patient denies any tobacco usage or history of. Screenin:39 [facility] ED Fall Risk Assessment (Adult) History of falling in the last 3 months, kc6 including since admission No falls in past 3 months (0 pts) Confusion or Disorientation No (0 pts) Intoxicated or Sedated No (0 pts) Impaired Gait No (0 pts) Mobility Assist Device Used No (0 pt) Altered Elimination No (0 pt) Score/Fall Risk Level 0 - 2 = Low Risk. Abuse screen: Denies threats or abuse. Denies injuries from another. Nutritional screening: No deficits noted. Tuberculosis screening: No symptoms or risk factors identified. Assessment: 12:39 General: Appears in no apparent distress. comfortable, well groomed, well developed, kc6 Behavior is calm, cooperative, appropriate for age. Pain: Complains of pain in left low back and right low back Pain currently is 4 out of 10 on a pain scale. at worst was 9 out of 10 on a pain scale. Neuro: Level of Consciousness is awake, alert, obeys commands, Oriented to person, place, time, situation, Appropriate for age. Cardiovascular: Capillary refill < 3 seconds. Respiratory: Airway is patent Trachea midline Respiratory effort is even, unlabored, Respiratory pattern is regular, symmetrical. GI: No signs and/or symptoms were reported involving the gastrointestinal system. : No signs and/or symptoms were reported regarding the genitourinary system. Urine is blood tinged, Denies burning with urination, urinary frequency. EENT: No signs and/or symptoms were reported regarding the EENT system. Derm: No signs and/or symptoms reported regarding the dermatologic system. Skin is intact, is healthy with good turgor, Skin is pink, warm \T\ dry. Musculoskeletal: No signs and/or symptoms reported regarding the musculoskeletal system. Circulation, motion, and sensation intact. Capillary refill < 3 seconds, Range of motion: intact in all extremities. 13:38 Reassessment: Patient appears in no apparent distress at this time. No changes from kc6 previously documented assessment. Patient and/or family updated on plan of care and expected duration. Pain level reassessed. Patient is alert, oriented x 3, equal unlabored respirations, skin warm/dry/pink. Patient denies pain at this time. Patient states feeling better. Patient states symptoms have improved. Vital Signs: 12:20 BP 123 / 81; Pulse 18; Resp 16; Temp 97.2; Pulse Ox 100% ; Weight 91.17 kg; Height 6 hb ft. 0 in. ; Pain 8/10; 12:38 BP 134 / 79; Pulse 75; Resp 16 S; Pulse Ox 99% on R/A; Pain 4/10; kc6 13:38 BP 124 / 80; Pulse 67; Resp 19 S; Pulse Ox 99% on R/A; kc6 12:20 Body Mass Index 27.26 (91.17 kg, 182.88 cm) hb 12:20 Pain Scale: Adult hb 12:38 Pain Scale: Adult kc6 ED Course: 11:56 Patient arrived in ED. rg4 12:01 Imel[facility]elroy [facility] 7 12:01 Freddy Jones MD is Attending Physician. jh7 12:23 Triage completed. hb 12:24 Arm band placed on Patient placed in an exam room, on a stretcher. hb 12:26 Sophia Martinez, RN is Primary Nurse. kc6 12:39 Patient has correct armband on for positive identification. Bed in low position. Call kc6 light in reach. Side rails up X 1. Adult w/ patient. Client placed on continuous cardiac and pulse oximetry monitoring. NIBP monitoring applied. 12:39 Inserted saline lock: 22 gauge in right antecubital area, using aseptic technique. kc6 Blood collected. Patient maintains SpO2 saturation greater than 95% on room air. 12:54 CT Stone Protocol In Process Unspecified. EDMS 14:26 No provider procedures requiring assistance completed. IV discontinued, intact, kc6 bleeding controlled, No redness/swelling at site. Pressure dressing applied. Administered Medications: 12:38 Drug: NS 0.9% IV 1000 ml IV at 1 bolus Per protocol; 1000 mL bolus Route: IV; Rate: 1 kc6 bolus; Site: right antecubital; 14:12 Follow up: Response: No adverse reaction; IV Status: Completed infusion; IV Intake: kc6 1000ml 12:38 Drug: Ondansetron IVP 4 mg IVP once; over 2 minutes Route: IVP; Site: right antecubital;kc6 13:43 Follow up: Response: No adverse reaction 6 12:38 Drug: morphine IVP or IV 4 mg IVP once over 4 mins Route: IVP; Infused Over: 4 mins; kc6 Site: right antecubital; 13:42 Follow up: Response: No adverse reaction; Pain is decreased; RASS: Alert and Calm (0) kc6 13:12 Drug: Rocephin IV 1 grams IV at 1 calculated rate once; Given slow IV push per pharmacy kc6 instructions Route: IV; Rate: 1 calculated rate; Site: right antecubital; 14:13 Follow up: Response: No adverse reaction; IV Status: Completed infusion; IV Intake: [id number] Medication: 14:27 VIS not applicable for this client. kc6 Intake: 14:12 IV: 1000ml; Total: 1000ml. kc6 14:13 IV: 10ml; Total: 1010ml. kc6 Outcome: 14:19 Discharge ordered by . preet 14:26 Discharged to home ambulatory, with significant other, kc6 14:26 Condition: good 14:26 Discharge instructions given to patient, significant other, Instructed on discharge instructions, follow up and referral plans. medication usage, Demonstrated understanding of instructions, follow-up care, medications, Prescriptions given X 2, 14:27 Patient left the ED. kc6 Signatures: Dispatcher [employer] EDMS Iveth Hendricks, RN RN Radha Arthur rg4 Imelda Mcelroy, STYLIST APPRENTICE STYLIST APPRENTICE Sophia Apple RN RN kc6
[2023-06-29 14:40] VITALS: BP 124/80; TEMP 97.2; O2SAT 99
== END ==
LOC: ER 11:55
DX: R10.9 Unspecified abdominal pain (principal); E86.0 Dehydration; I10 Essential (primary) hypertension
CPT/HCPCS: 96365; 96361; 87088; 85025; 81001; 87086; 36415; 83690; 80053; 76377; 74176; 96375; 99285; J2405; J7030; J0696